=== PATIENT | female | born 1975 | race Hispanic/Latino ===

== ENCOUNTER 2017-09-26 16:08 | Emergency (ER) | payer OTHER ==
[2017-09-26] MEDS ORDERED: KETOROLAC TROMETHAMINE 30MG/ML ONE (19:03)
[2017-09-26] MEDS ORDERED: BENZONATATE 100 MG CAPSULE PO ONE (19:13)
[2017-09-26] MEDS ORDERED: IPRATROPIUM/ALBUTEROL SULFATE 3 ML SOLUTION IH ONE (19:20)
== END 2017-09-26 21:11 | disposition short-term general hospital (02) ==
LOC: EDH 16:08
DX: S02.2XXA Fracture of nasal bones, initial encounter for closed fracture (principal); S00.83XA Contusion of other part of head, initial encounter; S80.812A Abrasion, left lower leg, initial encounter; S80.811A Abrasion, right lower leg, initial encounter; J06.9 Acute upper respiratory infection, unspecified; S00.531A Contusion of lip, initial encounter; Y04.2XXA Assault by strike against or bumped into by another person, initial encounter; Y93.89 Activity, other specified; Y92.488 Other paved roadways as the place of occurrence of the external cause; Y99.8 Other external cause status
CPT/HCPCS: 70160; 71046; 94640; 96372; 99285; J1885